=== PATIENT | male | born 1970 | race Caucasian/White ===

== ENCOUNTER 2020-07-02 14:43 | Emergency (ER) | payer OTHER ==
[2020-07-02 14:48] VITALS: BP 159/93; PULSE 86; RESP 18; TEMP 98.5
[2020-07-02] MEDS ORDERED: ACET/COD 300 MG/30 MG STARTER PACK 6 TAB BTL PO STA (15:06)
--- NOTE | 2020-07-02 15:34 | ED ---
Extremity Problem HPI - General Chief complaint: Extremity Problem,Nontraumatic Stated complaint: Possible blood clot in leg Time Seen by Provider: 07/02/20 14:54 Source: patient Mode of arrival: ambulatory Limitations: no limitations - History of Present Illness Initial comments: 50-year-old male presenting today for chief complaint of left posterior knee pain x 1 month. Patient states that his posterior left knee has been bother him for the past month. He states that there is an areas that is actually tender to touch. Denies redness, swelling. Denies fevers, direct injury ,falls or trauma. Denies lower leg swelling or foot swelling. Denies history of DVT/PE, recent surgeries, denies exogenous hormone use, recent travel, chest pain, hemoptysis o r additional complaints. Upon arrival patient appears well nontoxic on arrival. - Related Data Home Medications Medication Instructions Recorded Confirmed Hydrocodone/Acetaminophen 1 tab PO Q6H PRN 06/06/15 09/22/16 [Hydrocodon-Acetaminophen 5-325] ALPRAZolam [Xanax] 0.25 mg PO BID PRN 09/22/16 09/22/16 FLUoxetine HCL [PROzac] 20 mg PO DAILY 09/22/16 09/22/16 Ibuprofen [Motrin] 800 mg PO TID PRN 09/22/16 09/22/16 Omeprazole [PriLOSEC] 20 mg PO DAILY 09/22/16 09/22/16 Pravastatin Sodium [Pravachol] 20 mg PO DAILY 09/22/16 09/22/16 Zolpidem [Ambien] 5 mg PO HS PRN 09/22/16 09/22/16 amLODIPine [Norvasc] 10 mg PO DAILY 09/22/16 09/22/16 Previous Rx's Medication Instructions Recorded Orphenadrine [Norflex] 100 mg PO Q12H PRN #12 tablet.er 09/22/16 predniSONE 50 mg PO DAILY #5 tab 09/22/16 Allergies Allergy/AdvReac Type Severity Reaction Status Date / Time bee venom protein (honey bee) Allergy Anaphylaxis Verified 07/02/20 14:48 Review of Systems ROS Statement: Those systems with pertinent positive or pertinent negative responses have been documented in the HPI. ROS Other: All systems not noted in ROS Statement are negative. Past Medical History Past Medical History: Coronary Artery Disease (CAD), Hyperlipidemia, Hypertension Additional Past Medical History / Comment(s): chronic back pain History of Any Multi-Drug Resistant Organisms: None Reported Past Surgical History: Hernia Repair Past Psychological History: No Psychological Hx Reported Smoking Status: Current every day smoker Past Alcohol Use History: Occasional Past Drug Use History: Marijuana General Exam - General Exam Comments Initial Comments: General: The patient is awake and alert, in no distress Eye: +3 m pupils are equal, round and reactive to light, extra-ocular movements are intact. No nystagmus. There is normal conjunctiva bilaterally. No signs of icterus. Cardiovascular: There is a regular rate and rhythm. No murmur, rub or gallop is appreciated. Respiratory: Lungs are clear to auscultation, respirations are non-labored, breath sounds are equal. No wheezes, stridor, rales, or rhonchi. Musculoskeletal: Normal inspection of the knees b/l. No swelling but there is tenderness to palpation of the posterior left knee. no redness. Normal ROM, with mild tenderness of the left knee. Strength 5/5 of the LE b/l. Sensation intact of the LE b/l. DP and PT pulses equal bilaterally 2+. Neurological: A&O x 3. CN II-XII intact grossly, There are no obvious motor or sensory deficits. Coordination appears grossly intact. Speech is normal. Skin: Skin is warm and dry and no rashes or lesions are noted. Psychiatric: Cooperative, appropriate mood & affect, normal judgment. Limitations: no limitations Course Vital Signs 07/02/20 14:45 Temperature 98.5 F Pulse Rate 86 Respiratory 18 Rate Blood Pressure 159/93 O2 Sat by Pulse 98 Oximetry Medical Decision Making - Medical Decision Making She is able to weight-bear no skin changes neurovascularly intact strong pulses. PT and DP. No swelling. No calf pain. US (-) DVT. Patient XR WNL. recommend otupatient orthopedic f/u for further evaluation. pt denied fevers or eye redness no dysuria or other joint involvment. Patient case discussed with Dr. Astudillo who is agreeable to discharge with outpatient orthopedic f/u. Disposition Clinical Impression: Posterior left knee pain Disposition: HOME SELF-CARE Condition: Good Instructions (If sedation given, give patient instructions): Knee Pain (ED) Additional Instructions: Please use medication as discussed. Please follow-up with orthopedic surgery in next week. Please return to emergency room if the symptoms increase or worsen or for any other concerns. Is patient prescribed a controlled substance at d/c from ED?: No Referrals: Chang Mota MD [Primary Care Provider] - 1-2 days Naveen Caldwell MD [STAFF PHYSICIAN] - 1-2 days Time of Disposition: 16:12
--- NOTE | 2020-07-02 15:35 | XR ---
EXAMINATION TYPE: XR knee complete LT DATE OF EXAM: 07/02/2020 COMPARISON: None HISTORY: Pain TECHNIQUE: Three-view left knee FINDINGS: No acute fracture or dislocation is evident. Joint spaces are preserved. Anterior superior patellar spur is present. No joint effusion is evident. Follow-up exams can be performed 7-10 days from acute trauma for continued pain. IMPRESSION: 1. Normal three-view left knee
--- NOTE | 2020-07-02 16:04 | US ---
EXAMINATION TYPE: US venous doppler duplex LE LT DATE OF EXAM: 07/02/2020 3:55 PM COMPARISON: NONE CLINICAL HISTORY: posterior left knee pain. Left posterior knee pain SIDE PERFORMED: left TECHNIQUE: The lower extremity deep venous system is examined utilizing real time linear array sonog josephine with graded compression, doppler sonography and color-flow sonography. VESSELS IMAGED: External Iliac Vein (EIV) Common Femoral Vein Deep Femoral Vein Greater Saphenous Vein * Femoral Vein Popliteal Vein Small Saphenous Vein * Proximal Calf Veins (* superficial vessels) Left Leg: No evidence of DVT IMPRESSION: 1. Left lower extremity ultrasound negative for deep venous thrombosis
== END 2020-07-02 16:16 | disposition home or self-care (01) ==
LOC: EC 14:43
DX: M25.562 Pain in left knee (principal); I25.10 Atherosclerotic heart disease of native coronary artery without angina pectoris; E78.5 Hyperlipidemia, unspecified; I10 Essential (primary) hypertension; G89.29 Other chronic pain; M54.9 Dorsalgia, unspecified; Z91.030 Bee allergy status; Z79.899 Other long term (current) drug therapy
CPT/HCPCS: 99284

== ENCOUNTER → 2021-08-29 | Outpatient (CLI) | payer OTHER ==
--- NOTE | 2021-08-31 17:36 | US ---
EXAMINATION TYPE: US kidneys/renal and bladder DATE OF EXAM: 08/29/2021 COMPARISON: NONE CLINICAL HISTORY: 51-year-old male R35.1 Nocturia. Patient state constant urination, but pt says he d oes drink a lot of water. EXAM MEASUREMENTS: Right Kidney: 11.5 x 4.8 x 5.7 cm Left Kidney: 11.3 x 5.2 x 6.8 cm Post Void Residual Volume: 37.3 mL Right Kidney: No hydronephrosis or masses seen Left Kidney: No hydronephrosis or masses seen Bladder: distended, anechoic Bilateral Jets seen Normal Post Void Residual: yes but increased IMPRESSION: 1. No hydronephrosis. 2. Increased postvoid bladder volume of 37 mL. A postvoid residual volume of <50 mL may be within acc eptable limits. Clinically correlate.
== END | disposition home or self-care (01) ==
LOC: RADUSWWP 15:24
PROVIDERS: ATTEND Family Medicine
DX: R35.1 Nocturia (principal)
CPT/HCPCS: 76770

== ENCOUNTER → 2025-04-23 | Outpatient (CLI) | payer OTHER ==
--- NOTE | 2025-04-27 20:07 | MR ---
MR shoulder RT wo con DATE OF EXAM: 04/23/2025 4:42 PM COMPARISON: Right shoulder radiographs 03/13/2020. CLINICAL INDICATION: Male, 54 years old with history of M25.511 RIGHT SHOULDER PAIN; PHH, Right shoul dilcia pain and difficulty raising arm x2 years TECHNIQUE: Noncontrast multiplanar, multiecho imaging of the right shoulder was performed, including T1-weighted and fluid sensitive sequences. FINDINGS: Rotator cuff: Supraspinatus and infraspinatus: Full-thickness tear of the anterior supraspinatus at the footplate/i nsertion with favored reactive edema-like marrow signal within the greater tuberosity. No significant tendinous retraction. Marked tendinosis of the insertional supraspinatus which extends proximally in to the critical zone. Infraspinatus intact. Subscapularis: High-grade partial thickness articular surface tear of the superior tendon fibers with delaminating extension proximally. Teres minor: Intact. Cuff muscles: Symmetric bulk and signal intensity. Acromioclavicular joint: Marked arthrosis with distal clavicular predominant subchondral cystic vines e. Mild capsular hypertrophy. Reactive edema-like marrow signal both the acromion and clavicle. SA-SD bursa: Mild volume bursal fluid. Long head biceps tendon: Intact, with normal course. Marked tendinosis of the intra-articular portion . Tenosynovitis about the extra-articular portion extends distally out of the field of view. Rotator Interval: Edematous with near complete effacement of the fat. Axillary pouch: Nonthickened, no adjacent edema. Trace fluid distention. Labrum: Diminutive and blunted appearance of the posterior superior labrum with attenuation of signal , which is favored degenerative. No discrete tear of the posterior superior portion. Additional blunt ing of the posterior and posterior-inferior labrum. Linear fluid signal of the inferior labrum concer estefani for tear. Cartilage: Diffuse surface irregularity of the glenoid cartilage without full-thickness/high-grade de fect. Marked thinning of the superior humeral head cartilage. Marrow: As above. Additional subcortical cystic change in the posterolateral corner. No fracture or m arrow replacing process. Other soft tissues: No joint effusion. No axillary adenopathy. Nonspecific edema of the distal subcla vius muscle. IMPRESSION: 1. Full thickness non-retracted insertional tear of the anterior supraspinatus with marked tendinosi s. Edema-like marrow signal of the greater tuberosity is favored reactive. 2. High-grade partial-thickness articular surface tear of the superior subscapularis. 3. Marked intra-articular biceps tendinosis with additional tenosynovitis of the extra-articular bic eps tendon. [facility], , 04/27/2025 8:05 PM
== END | disposition home or self-care (01) ==
LOC: RADMRIMAIN 15:56
PROVIDERS: ATTEND Orthopaedic Surgery
DX: M75.111 Incomplete rotator cuff tear or rupture of right shoulder, not specified as traumatic (principal); M65.911 Unspecified synovitis and tenosynovitis, right shoulder